=== PATIENT | female | born 1995 | race Caucasian/White ===

== ENCOUNTER 2018-12-12 15:38 | Emergency (ER) | payer SELFPAY ==
[2018-12-12 15:59] VITALS: BP 120/77
--- NOTE | 2018-12-12 16:08 | UC ---
Bite Injury/Animal HPI - History of Current Complaint Chief Complaint: UCBiteInjury Stated Complaint: ANIMAL BITE LEFT THUMB Hx Last Menstrual Period: 06/11/12 Pain Intensity: 0 - Allergies/Home Medications Allergies/Adverse Reactions: Allergies Allergy/AdvReac Type Severity Reaction Status Date / Time No Known Allergies Allergy Verified 12/12/18 15:59 PMH/Surg Hx/FS Hx/Imm Hx Previously Healthy: Yes - Surgical History Surgical History: Yes Surgery Procedure, Year, and Place: breast augmentation. wisdom tooth - Family History Known Family History: Positive: Non-Contributory - Social History Alcohol Use: None Substance Use Type: None Smoking Status (MU): Never Smoked Tobacco - Immunization History Most Recent Tetanus Shot: unknown Vaccination Up to Date: Yes Review of Systems All Other Systems Reviewed And Are Negative: Yes Constitutional: Positive: Negative Skin: Positive: Bruising - left thumb, Other - bite to left thumb Respiratory: Positive: Negative Cardiovascular: Positive: Negative Neurovascular: Positive: Negative Musculoskeletal: Negative: Arthralgia, Decreased ROM, Edema, Myalgia Neurological: Positive: Negative. Negative: Weakness, Paresthesia, Numbness Physical Exam Triage Information Reviewed: Yes Appearance: Well-Appearing, No Pain Distress, Well-Nourished Vital Signs: Initial Vital Signs Temp 99.9 F 12/12/18 15:53 Pulse 88 12/12/18 15:53 Resp 18 12/12/18 15:53 BP 120/77 12/12/18 15:53 Pulse Ox 100 12/12/18 15:53 Vital Signs Reviewed: Yes Eyes: Positive: Conjunctiva Clear ENT: Positive: Hearing grossly normal Neck: Positive: Supple Respiratory: Positive: No respiratory distress Cardiovascular: Positive: Pulses Normal, Brisk Capillary Refill Musculoskeletal Exam: Normal Musculoskeletal: Positive: Strength Intact, ROM Intact, No Edema, Other: - mild tenderness to palpation of distal phalanx of left thumb Neurological: Positive: Alert Psychological: Positive: Age Appropriate Behavior, Consolable, Other: Skin: Positive: Other - two superficial puncture wounds noted on palmar surface of distal phalanx of left thumb. no active bleeding. no drainage. no erythema. minimal ecchymosis noted around puncture sites Bite Injury Course/Dx - Course Course Of Treatment: I instructed the patient to take Augmentin as prescribed for the treatment of possible infection. Instructed her to take ibuprofen if any pain occurs. Jessica, RN spoke with the health department who gave instructions to have the patient either drop the pig off, arrange for pick-up, or drop it off at her vet's office to have it sent to the lab and tested for rabies. The patient stated that the pig was an indoor pet and she is not concerned for rabies. She has an appointment for cremation on Friday. I encouraged her to have the pig tested for her own health and safety. It was strongly advised that she follow up with the health department. Patient would not provide an answer to whether or not she would have the pig tested. Instructed her to go to the ED if she experiences fever, n/v, drainage, increasing redness and warmth, or inability to move the thumb. Patient voiced understanding and agreed to the treatment plan. - Differential Dx/Diagnosis Provider Diagnosis: Animal bite of left thumb Discharge ED - Sign-Out/Discharge Documenting (check all that apply): Patient Departure All imaging exams completed and their final reports reviewed: No Studies - Discharge Plan Condition: Stable Disposition: HOME Prescriptions: Amoxicillin/Clavulanate 600 [Augmentin ES-600 (NF)] 600 mg PO TID #105 btl Patient Education Materials: Diphtheria/Acellular Pertussis/Tetanus Booster Vaccine (By injection), Animal Bite (ED) Referrals: [facility] [Outside] - If Needed [facility] [Outside] - If Needed Additional Instructions: As discussed, take Augmentin as prescribed to treat possible infection. You received a tetanus booster today. Soreness at the injection site is common. You may take ibuprofen as directed for pain relief. It is important to that you follow up with the options we discussed that the health department offered in terms of ensuring that you were not exposed to rabies. Go to the emergency room if you experience worsening pain, redness and warmth, drainage, bleeding, inability to move the thumb, fever, nausea, or vomiting. - Billing Disposition and Condition Condition: STABLE Disposition: Home
[2018-12-12] MEDS ORDERED: Tetan/Diph/Pertus SYR(Tdap)* 0.5 ML SYR(BOOSTRIX) use SYR contains LATEX IM ONE (16:36)
== END 2018-12-12 16:53 | disposition home or self-care (01) ==
LOC: UCCORT 15:38
DX: S61.052A Open bite of left thumb without damage to nail, initial encounter (principal); W64.XXXA Exposure to other animate mechanical forces, initial encounter; Y92.9 Unspecified place or not applicable
CPT/HCPCS: 90471; 90715; 99202; G0463